=== PATIENT | male | born 1945 | race Caucasian/White ===

== ENCOUNTER 2021-04-09 11:32 | Inpatient (IN) | payer BC ==
[~2021-04-09] VITALS: Ht 182.9 cm; Wt 148.4 kg
--- NOTE | ~2021-04-09 | O ---
[facility] [place] [address] OPERATIVE REPORT Name: ANJEL JONES Room #: 457-P ADM IN M.R.#: [id number] Admission: 04/09/21 Attend Phys: Romeo Pham MD Discharge: Date of : 43 Report #: [id number] THIS REPORT FOR: cc: FAM - Family physician unknown FAM - Family physician unknown Brady Churchill MD ~ DOC #: [id number] Brady Churchill MD DATE OF SERVICE: 04/13/2021 PREOPERATIVE DIAGNOSES: Gallstone pancreatitis, acute cholecystitis. POSTOPERATIVE DIAGNOSES: Gallstone pancreatitis, acute cholecystitis. OPERATION: Laparoscopic cholecystostomy. SURGEON: Brady Churchill MD. ANESTHESIA: General. ESTIMATED BLOOD LOSS: Minimal. SPECIMENS: None. DESCRIPTION OF PROCEDURE: After informed consent was obtained, the patient was brought to the operating room and placed supine. SCDs were placed and working. Preoperative antibiotics were administered. General anesthesia was induced. The abdomen was prepped and draped in the usual sterile fashion. A 5 mm incision was made in the left upper quadrant. Pneumoperitoneum was established. A supraumbilical 5-mm trocar was placed as well as 2 right upper quadrant 5 mm trocars were placed. I began dissection in the right upper quadrant. There was a significant amount of scarring from his previous operation, which appeared to have involved the right upper quadrant of the abdomen. I was able to identify the gallbladder. However, there was so much inflammation due to the cholecystitis and pancreatitis then I could not safely dissect in the triangle of [place]. At this point, I then made a cholecystomy. A 15-Equatorial [place]inean drain was placed through one of the right upper quadrant 5 mm trocars. A drain was placed into the gallbladder under laparoscopic vision. The ports were then removed. Skin was closed with 4-0 Monocryl. The drain was attached to bulb suction. Sterile dressings were applied. COMPLICATIONS: None. DISPOSITION: The patient was taken to recovery in satisfactory condition. [address] [address] OPERATIVE REPORT Name: KARENANJEL Room #: 457-P [facility] IN M.R.#: [id number] Admission: 04/09/21 Attend Phys: Romeo Pham MD Discharge: Date of : 43 Report #: [id number] MD CHELY Thomas/CUBA By: 1509 1617 Brady Churchill MD /nt
[2021-04-09 12:42] VITALS: BP 128/61
[2021-04-09] MEDS ORDERED: CARVEDILOL6.25 M1 PO (13:40)
[2021-04-09] MEDS ORDERED: LASIX 40 MG TAB40 MG PO (13:41)
[2021-04-09] MEDS ORDERED: SPIRONOLACTONE50 MG PO (13:48)
[2021-04-09] MEDS ORDERED: ALLOPURINOL 10100 M2 PO (13:50)
--- NOTE | 2021-04-09 14:12 | NUR ---
ASSUMED CARE OF PT AT 1230 THIS AFTERNOON. PT IS DIRECT ADMIT FROM [facility]. PT IS ADMITTED FOR POSSIBLE CYSTOCYSTECTOMY AFTER TESTING. PT IS A/OX4, NO PAIN COMPLAINTS. SKIN INTACT WITH LARGE MIDLINE SCAR DO TO COLONESTOMY AND OPEN HEART SURGERY.LIPS ARE CYANOTIC LOOKING AND PT STATED THAT IS NORMAL FOR HIM. PT O2 SAT IS 96% RA.IV IN LEFT HAND SL. ASSESSMENTS OTHERWISE UNREMARKABLE. CALL LIGHT AND OTHERNEEDS ARE WITHIN REACH. PT PREFERS TO SLEEP IN THE RECLINER DUE TO PREVIOUS NECK SURGERY.RX HAS BEEN SUBMITTED AND WAITING FOR DR. HORTON TO RECONCILE AND PLACE ORDERS.
--- NOTE | 2021-04-09 15:53 | NUR ---
PT ADMITTED RELATED TO POSSIBLE BILIARY BLOCK, CHOLECYSITIS. CM REVIEWED CHART AND SPOKE WITH CARE TEAM. CM MET WITH PT AT BEDSIDE THIS DAY. PT APPEARED TO BE A&O X4. CM ROLE INTRODUCED. PT INDICATED HE RESIDES IN A HOUSE WITH HIS AND FATHER IN [facility]. HE INDICATED THAT HE IS HERE VISITING HIS DTR KVNG VILLEDA AT HER HOUSE IN [facility]. HE INDICATED THAT THERE ARE 3 STEPS TO ENTER HER HOUSE THROUGH THE BACK AND 7-8 THROUGH THE FRONT. PT INDICATED HE USES A CANE IN THE COMMUNITY. PT HAS CPAP FOR HOME USE. [place] PCP IS [place] IS DR. DAVIE RODRIGUEZ. PT INDICATED THAT HE ANTICIPATES RETURNING TO HIS DTR'S HOUSE ONCE MEDICALLY STABLE. CM TO FOLLOW INDICATED WITH DC PLANNING.
--- NOTE | 2021-04-09 16:08 | EKG ---
[address] [address] ELECTROCARDIOGRAM REPORT Name: ANJEL JONES Room #: 457-P ADM IN M.R.#: [id number] Admission: 04/09/21 Attend Phys: Romeo Pham MD Discharge: Date of : 43 Report #: [id number] [facility] Test Date: 2021-04-09 Test Time: 15:34:44 Pat Name: ANJEL JONES Department: Room: [facility] Gender: M Sales Representative Groceries: FSCHWALBE : 1945 Requested By: Alexandre Covarrubias Order Number: [id number] : Amrit Luciano Measurements Intervals [place] Rate: 89 P: NV: QRS: 18 QRSD: 120 T: 171 QT: 332 QTc: 404 Interpretive Statements Atrial fibrillation No previous ECG available for comparison Electronically Signed On 04-09-2021 16:08:16 CDT by Amrit Luciano [email or web address] <ELECTRONICALLY SIGNED> By: Amrit Luciano MD, [facility] 04/09/21 1608 1534 1534 Amrit Luciano MD, FACC /EPI
[2021-04-09 16:31] LABS: ABSOLUTE NEUTROPHILS 6.8 thou/uL (1.4-8.2); BASOPHILS 0.1 % (0.0-2.0); EOSINOPHILS 0.3 % (0.0-3.0); HEMATOCRIT 46.9 % (42.0-52.0); HEMOGLOBIN 15.4 gm/dL (14.0-18.0); LYMPHOCYTES 2.2 % (24.0-44.0); MCH 32.2 pg (26.0-34.0); MCHC 32.8 g/dL (28.0-37.0); MONOCYTES 5.8 % (1.0-8.0); PLATELET COUNT 132 thou/uL (150-400); POLYS 91.6 % (36.0-66.0); RBC 4.78 mil/uL (4.50-6.00); RDW 15.5 % (10.5-14.5); WBC 7.4 thou/uL (4.0-11.0)
[2021-04-09 16:44] LABS: APTT 27.2 Seconds (24.5-32.8); INR 1.21; PROTIME 13.1 Seconds (10.5-12.1)
[2021-04-09 16:51] LABS: ALBUMIN 3.6 g/dL (3.4-5.0); ANION GAP 7 mmol/L (7-16); BUN 25 mg/dL (7-18); CALCIUM 9.1 mg/dL (8.5-10.1); CHLORIDE 99 mmol/L (98-107); CO2 29 mmol/L (21-32); CREATININE 1.3 mg/dL (0.7-1.3); MAGNESIUM 1.8 mg/dL (1.8-2.4); POTASSIUM 4.3 mmol/L (3.5-5.1); SGOT 192 U/L (15-37); SGPT 282 U/L (30-65); SODIUM 135 mmol/L (136-145); TOTAL BILIRUBIN 7.5 mg/dL (0.2-1.0); TOTAL PROTEIN 7.1 g/dL (6.4-8.2); TROPONIN-I <0.06 ng/mL (<0.06)
[2021-04-09 16:52] LABS: GLUCOSE 126 mg/dL (74-106)
[2021-04-09 17:43] LABS: BE(vivo) -2.7 mmol/L (-2 to +3); HCO3 20.2 mmol/L (22.0-26.0); PCO2 30.6 mmHg (35.0-45.0); pH 7.437 (7.360-7.450); sO2 91.4 % (92.0-98.0)
[2021-04-09 20:12] VITALS: BP 118/77
[2021-04-10 07:29] LABS: CALCIUM 8.9 mg/dL (8.5-10.1); CREATININE 1.5 mg/dL (0.7-1.3)
[2021-04-10 08:04] VITALS: BP 107/61
--- NOTE | 2021-04-10 08:08 | NUR ---
Assumed pt care at 1900. A/OX4, VSS. Denies pain on assessment. C/o weakness, SBA to BR. Sleeps on the chair,encouraged to keeep extremities elevated;has 3+pitting edema on BLE; IV lasix given at HS and pt voiding adequately. Resting quietly CPAP/Continuous POX on. Call light within reach.
--- NOTE | 2021-04-10 13:30 | NUR ---
PT HAS GENERAL SURGERY CONSULT, CARDIOLOGY, AND GI. THERE HAD BEEN TALK FOR POSSIBLE LAP LEOBARDO. CM FOLLOWING REGARDING DC PLANNING.
[2021-04-10 17:13] VITALS: BP 106/70
--- NOTE | 2021-04-10 20:11 | NUR ---
Patient alert and orinted x4, on room air, up with stand by assist, vital signs stable, and afbrile. Call light with in reach. will continue to monitor.
[2021-04-10 21:43] VITALS: BP 106/69
[2021-04-11 05:57] LABS: HEMATOCRIT 44.6 % (42.0-52.0); HEMOGLOBIN 14.9 gm/dL (14.0-18.0); MCH 32.4 pg (26.0-34.0); MCHC 33.5 g/dL (28.0-37.0); MCV 96.7 fL (80.0-100.0); RBC 4.61 mil/uL (4.50-6.00); RDW 15.4 % (10.5-14.5); WBC 6.6 thou/uL (4.0-11.0)
[2021-04-11 06:15] LABS: ALBUMIN 3.2 g/dL (3.4-5.0); TOTAL BILIRUBIN 3.2 mg/dL (0.2-1.0); TOTAL PROTEIN 6.8 g/dL (6.4-8.2)
[2021-04-11 06:20] LABS: CALCIUM 8.7 mg/dL (8.5-10.1); CREATININE 1.7 mg/dL (0.7-1.3); POTASSIUM 3.2 mmol/L (3.5-5.1)
--- NOTE | 2021-04-11 07:23 | NUR ---
Assumed pt care at 1900. A/OX4, VSS.Denies pain on assessment, no N/V. Up with SBA to BR. Voiding adequately per urinal. Edema persists to BLE 3+ encouraged to keep extremities elevated, sleeps on the chair. Resting quietly w/o distress noted CPAP on.
[2021-04-11 07:53] VITALS: BP 104/64
--- NOTE | 2021-04-11 11:46 | NUR ---
ASSUMED PT CARE THIS AM. PT A&OX4, VITAL SIGNS STABLE. PATIENT HAS BLE EDEMA NOTED. PATIENT REMAINS CONTINENT, AND IS STANDBY ASSIST TO THE BATHROOM. APTIENT ABLE TO MAKE NEEDS KNOWN. PATIENT REPORTS NO PAIN, NUMBNESS, OR TNIGLING. IV PATENT, SALINE LOCKED. PATIENT ON ROOM AIR. REMAINS ON TELEMETRY. REMAINS NPO OTHER THAN SIPS WITH MEDICATIONS ORDERED. CALL LIGHT WITHIN REACH.
--- NOTE | 2021-04-11 15:12 | NUR ---
PT WAS TO HAVE ERCP AND POSSIBLE LAP LEOBARDO THIS DAY BUT THERE WAS ISSUE WITH EQUIPTMENT SO THEY WILL DONE TOMMOROW. PT EXPRESSED CONCERN THAT HE MAY BE OON HERE... CM SPOKE WITH PT AND HE INDICATED HE HADN'T BEEN INFOMRED OF THAT BUT JUST HAD A FEELING. UR NURSE SEEING IF SHE CAN REACH OUT TO INSURANCE FOR DETERMINATION. CM FOLLOWING REGARDING DC PLANNING.
[2021-04-11 16:05] VITALS: BP 95/60
[2021-04-11 17:50] VITALS: BP 106/59
[2021-04-11 19:25] VITALS: BP 103/59
--- NOTE | 2021-04-12 04:21 | NUR ---
ASSESSMENT DOCUMENTED.PT BEEN RESTING IN NO ACUTE DISTRESS.A/OX4.VSS.PT SLEEPING IN THE CHAIR,CPAP ON.NPO FOR ERCP TODAY.NO CONCERNS VOICED.
[2021-04-12 05:18] LABS: CALCIUM 8.5 mg/dL (8.5-10.1); CREATININE 1.7 mg/dL (0.7-1.3); POTASSIUM 3.5 mmol/L (3.5-5.1)
[2021-04-12 05:29] LABS: ALBUMIN 3.2 g/dL (3.4-5.0); DIRECT BILIRUBIN 1.9 mg/dL (<0.1-0.2); TOTAL BILIRUBIN 2.6 mg/dL (0.2-1.0); TOTAL PROTEIN 6.2 g/dL (6.4-8.2)
[2021-04-12 07:30] VITALS: BP 107/56
--- NOTE | 2021-04-12 13:45 | NUR ---
PT TO HAVE ERCP THIS DAY AND DEPENDING ON RESULTS LAP LEOBARDO. CM FOLLOWING REGARDING DC PLANNING.
[2021-04-12 16:43] VITALS: BP 104/69
[2021-04-12 20:03] VITALS: BP 102/64
--- NOTE | 2021-04-12 20:21 | NUR ---
Received awake on bed. On nothing per orem- pt informed and aware; mouth swabs offered. On telemetry; no complains and signs of chest pain, crushing sensation and heaviness. Assisted in ADLs. On room air during daytime and CPAP at HS. Continent of bowel and bladder, using urinal at times. Pt preferred to stay in the recliner most of the day; able to reposition self; elevated legs. With SL at L FA- on IV antibiotics. Falls bundle in place. Scheduled for ERCP today, fetched by pre-op staff approx 11am- back to room at 1500, transferred safely. Complained of nausea, PRN Zofran given as prescribed; able to tolerate clear liquids. Pt scheduled to have lap janna tomorrow- pt informed and aware; night RN informed pt to be NPO at midnight. Complained of pain, refusing to have PRN IV morphine- Dr Ellis informed re: this, ordered for PO Tylenol obtained- given as prescribed. To continue monitoring patient.
[2021-04-13 08:00] VITALS: BP 114/66
[2021-04-13 10:04] LABS: HEMATOCRIT 45.1 % (42.0-52.0); HEMOGLOBIN 14.9 gm/dL (14.0-18.0); MCH 32.1 pg (26.0-34.0); MCV 97.1 fL (80.0-100.0); RBC 4.65 mil/uL (4.50-6.00); RDW 14.8 % (10.5-14.5); WBC 6.6 thou/uL (4.0-11.0)
[2021-04-13 10:34] LABS: CALCIUM 8.8 mg/dL (8.5-10.1); CREATININE 1.7 mg/dL (0.7-1.3); MAGNESIUM 2.1 mg/dL (1.8-2.4); POTASSIUM 4.7 mmol/L (3.5-5.1)
--- NOTE | 2021-04-13 12:22 | NUR ---
PT HAD ERCP YESTERDAY. PT HAVING LAP LEOBARDO THIS DAY. IT IS ANTICPATED THAT PT WILL DISCHARGE HOME TO HIS DTR'S HOUSE IN [place] ONCE MEDICALLY STABLE. PT MAY BE MEDICALLY STABLE TO DISCHARGE OVER THE WEEKEND. NO NEEDS ANTICPATED AT THIS TIME.
[2021-04-13 18:08] VITALS: BP 113/74
--- NOTE | 2021-04-13 18:33 | NUR ---
ASSUMED CARE OF PATIENT AT SHIFT CHANGE. ASSESSMENT CHARTED. MEDICATIONS HELD EXCEPT BETA HERNAN PER PRE-OP REQUEST. VSS. PATIENT A&OX4 AND MAKES NEEDS KNOWN. PATIENT WORKED WITH OT THIS DAY AND DID WELL. PATIENT LEFT FOR LAP LEOBARDO AT 1300 AND RETURNED AT APPROX 1700. PATIENT ENCOUNTERED COMPLICATIONS DURING SX AND WAS NOT ABLE TO HAVE GALLBLADDER REMOVED DUE TO TOO MUCH INFLAMMATION; SEE POST OP NOTES. PATIENT RECIEVED FROM PACU WITH EYES CLOSED BUT ALERT AND ORIENTED. PATIENT VOICES SORENESS ON GEN. ABD ESPECIALLY RUQ. MARGARET DRAIN NOW IN PLACE ON RUQ DRAINING SANGUINOUS FLUID. PATIENT STATES HE FEELS TO SORE TO GET UP AND USE THE URINAL AND CONSENTED TO AN EXTERNAL MAKE CATHETER; IN PLACE. REG DIET AVALABLE HOWEVER PATIENT IS HOLDING OFF FOR NOW. FALL PRECAUTIONS IN PLACE. WILL ENDORSE TO HOLLIE NIX
[2021-04-13 20:05] VITALS: BP 118/79
[2021-04-14 04:32] VITALS: BP 131/87
--- NOTE | 2021-04-14 04:35 | NUR ---
PATIENT AOX4 MAKES NEEDS KNOWN. PATIENT ON 2 L OF OXYGEN AND CPAP AT NIGHT, NO SOA OR DISTRESS NOTED THIS SHIFT.PATIENT HAS 3 LAB SITE C/D/I.MARGARET DRAINAGE ON RLQ DRESING IS C/D/I,WITH LARGE AMOUNT OF OUTPUT. FALL PRECAUTION IN PLACE.PATIENT IN BED ASLEEP AT THIS TIME BREATHING REGULAR AND UNLABOURED.
[2021-04-14 05:36] LABS: HEMATOCRIT 42.5 % (42.0-52.0); HEMOGLOBIN 14.2 gm/dL (14.0-18.0); MCH 32.6 pg (26.0-34.0); MCHC 33.3 g/dL (28.0-37.0); MCV 97.7 fL (80.0-100.0); RBC 4.35 mil/uL (4.50-6.00); WBC 9.7 thou/uL (4.0-11.0)
[2021-04-14 05:41] LABS: CALCIUM 8.4 mg/dL (8.5-10.1); CREATININE 1.6 mg/dL (0.7-1.3); MAGNESIUM 2.2 mg/dL (1.8-2.4); POTASSIUM 4.6 mmol/L (3.5-5.1)
[2021-04-14 07:26] VITALS: BP 107/63
--- NOTE | 2021-04-14 14:45 | NUR ---
Assumed pt care this am vs stable. Pt prefers to stay on the recliner. pain is managed with medications. MARGARET drain in place draining dark brown fluid. +2 pitting edema on BLE, hypoactive bowel sounds. POC followed with no signs or distress noted.
[2021-04-14 15:50] VITALS: BP 102/65
[2021-04-14 19:53] VITALS: BP 95/62
--- NOTE | 2021-04-15 05:01 | NUR ---
Assumed pt care at 1900. A/OX4, VSS. Up with SBA to bathroom. No BM yet,passing flatus. C/o pain to RUQ on MARGARET site,medicated per EMAR with no relief reported. Hanna FRANCOIS notified;N.o for additional Dilaudid given. Pt has 3 lap sites on Left side abd intact with steri-strips. Margaret drain with moderate drainage,serosanguineous drainage. Resting on recliner feet elevated, CPAP in place no distress noted. Will continue to monitor pt.
[2021-04-15 08:28] VITALS: BP 114/82
[2021-04-15 17:43] VITALS: BP 116/74
--- NOTE | 2021-04-15 19:34 | NUR ---
Assumed pt care this am, vs stable . Preferred to be in the recliner for the entire shift and stated he sleeps better there. Pain is managed with medications partial relief is noted. Significant output is noted for the MARGARET neelima on the RUQ draining dark brown fluid. Uses the urinal with dark yellow urine. Daily wt taken 326 lbs, hypo active bowel sounds awaiting bm medication given as per emar. Pt stated he is passing flatus though not observed. Pt kept on stating he was going home today, wanting to be assisted in dressing up. Explained in numerous occasions this was not the case and he is not being dc.l Pt is not able to get up from the recliner easily and pain free, pt lips are cyanotic. BLE elevated, +1 edema noted from the ankles to the feet. and daughter have called asking if pt will be dc since this is what the pt stated. Informed family of the current status of the pt and dc was ontr being givenas of today. Both daughter and stated he cannot go home given the current state and the daughter with who he will be going home to here in is not able and willing to take him in given her own medical issues. Pt got upset that no one has come to visit him and he was "chewed out by his family". Endorsded to the night nurse. POC followedm, endorsed to the night nurse.
[2021-04-15 19:51] VITALS: BP 107/81
[2021-04-16 05:30] LABS: HEMATOCRIT 42.8 % (42.0-52.0); HEMOGLOBIN 13.9 gm/dL (14.0-18.0); MCH 31.6 pg (26.0-34.0); MCHC 32.5 g/dL (28.0-37.0); MCV 97.1 fL (80.0-100.0); RBC 4.41 mil/uL (4.50-6.00); RDW 15.3 % (10.5-14.5); WBC 11.8 thou/uL (4.0-11.0)
[2021-04-16 05:37] LABS: CALCIUM 8.4 mg/dL (8.5-10.1); CREATININE 1.6 mg/dL (0.7-1.3); MAGNESIUM 2.1 mg/dL (1.8-2.4); POTASSIUM 4.5 mmol/L (3.5-5.1)
--- NOTE | 2021-04-16 07:26 | NUR ---
Assumed pt care at 1900. A/OX4, VSS. Up with min assist to use urinal/BSC, passing flatus no BM yet. C/o abd pain around MARGARET site medicated per with some relief reported. Margaret drain with serosanguineous drainage 55cc. Pt was frustrated at the beginning of the shift regarding dc;1:1 time spent with pt and pt verbalized feeling better and will follow POC. AFIB on telemetry. Resting on the recliner w/o any distress noted.
[2021-04-16 07:27] VITALS: BP 96/61
--- NOTE | 2021-04-16 10:18 | P ---
[facility] [place] [address] PROCEDURE REPORT Name: ANJEL JONES Room #: 457-P ADM IN M.R.#: [id number] Admission: 04/09/21 Attend Phys: Romeo Pham MD Discharge: Date of : 43 Report #: [id number] THIS REPORT FOR: cc: FAM - Family physician unknown FAM - Family physician unknown Talha Desouza MD ~ DOC #: [id number] cc: Brady Churchill MD, Oneil Santana MD [facility], MD Talha Tsang MD DATE OF SERVICE: 04/12/2021 PROCEDURE PERFORMED: ERCP with sphincterotomy and balloon sweeps. HISTORY OF PRESENT ILLNESS: The patient is a 75-year-old male who was transferred from [facility] for possible gallstone pancreatitis. Lives in [place], [place], was visiting his daughter, began having abdominal pain. At [facility], he was noted to have a lipase of 3478. CT scan of the abdomen and pelvis showed dilated gallbladder with dependent stones. Ultrasound also showing distended gallbladder with cholelithiasis suggestive of cholecystitis with diffuse gallbladder mural thickening, positive Robles sign. His bilirubin on admission was 7.5, AST 192, ALT 282, alkaline phosphatase 135. He was unable to undergo an MRCP as he is claustrophobic. His white count has remained normal and stable. His white count yesterday was 6.6. His bilirubin has dropped, it is 2.6 today. AST 44, ALT 123, alkaline phosphatase 94. He is feeling better at this time. He has been on IV Zosyn since admission. Plan is for ERCP. DESCRIPTION OF PROCEDURE: The risks and benefits of the procedure were explained to the patient, those risks including but not limited to bleeding, perforation and the risk of sedation as well as the potential risk for post-ERCP pancreatitis. He understood these risks and gave informed consent. The procedure was performed in the OR under general anesthesia. Again, the patient is already on scheduled IV Zosyn. A 50 mg indomethacin rectal suppository was given prior to the procedure as well. Next, using a standard Olympus side-viewing ERCP scope, the scope was placed in the patient's mouth and advanced under direct vision through the esophagus, stomach, and into the second portion of the duodenum. The major papilla was identified, which was normal. Just above the papilla was a medium size diverticulum. Next, using a Hansel-Cook 0.025 dome tip sphincterotome catheter, the common bile duct was cannulated without difficulty and a cholangiogram was obtained. A low off take of the cystic duct was noted. The cystic duct did fill as well as part of the gallbladder. A guidewire was advanced into the intrahepatic ducts. The cholangiogram showed mild dilation of the distal common bile duct. No obvious filling defects were seen. At this point, a sphincterotomy was performed. Small amount of sludge and debris was removed just with the sphincterotome [address] [address] PROCEDURE REPORT Name: ANJEL JONES Room #: 457-P [facility] IN M.R.#: [id number] Admission: 04/09/21 Attend Phys: Romeo Pham MD Discharge: Date of : 43 Report #: [id number] during sphincterotomy. At this point, the sphincterotome was removed and a balloon catheter was advanced over the guidewire. Several balloon sweeps were then performed, again a small amount of sludge was noted, but no stone was seen. At this point, a balloon occlusion cholangiogram was then performed. No filling defects were noted. At this point, the wire and catheter were removed. The scope was then withdrawn and the procedure terminated. The patient tolerated the procedure well. IMPRESSION: 1. Mildly dilated common bile duct. No obvious filling defect, status post sphincterotomy with balloon sweeps with removal of some sludge, suspect the patient may have had a common bile duct stone which is already passed as his bilirubin is improving. 2. Small duodenum and medium size diverticulum. 3. Normal intrahepatics. RECOMMENDATIONS: 1. Observe the patient post-procedure. 2. Recommend laparoscopic cholecystectomy in the near future. 3. Continue monitoring liver function test and continue antibiotics at this time. Thank you for allowing me to participate in his care. Talha Desouza MD CCM/VALERIY <ELECTRONICALLY SIGNED> By: Talha Desouza MD 04/16/21 1018 1246 [id number] Talha Desouza MD /nt
--- NOTE | 2021-04-16 10:19 | NUR ---
Received awake on bed. Due medications given as prescribed, able to swallow meds w/o difficulty. On room air during daytime; using CPAP at night. On telemetry, no complains of chest pain, crushing sensation and heaviness. Assisted in ADLs. Continent of bowel and bladder, using urinal and able to use bedside commode at times. Pt complaining of not having a bowel movement for 5-6 days- physician aware; on stool softeners already. With MARGARET drain at RUQ- dressing C/D/I- output measured and recorded accordingly. With 3 lap sites- C/D/I- no signs of bleeding and drainage noted. On regular diet- tolerating well; no nausea, no vomiting and no abdominal pain noted. With SL t L FA; on IV antibiotics. No complains of pain made during assessment. To continue monitoring patient.
[2021-04-16 16:16] VITALS: BP 107/63
[2021-04-16 20:19] VITALS: BP 99/53
--- NOTE | 2021-04-17 02:59 | NUR ---
PT BEEN RESTING IN NAD.A/OX4.VSS.PT HAS A LARGE SOFT BM THIS SHIFT.STATED HE FEELS SO MUCH BETTER.PT ANTICIPATING DISCHARGE TO HOME TODAY.J-P DRAIN DD SEROSANGUOIUS DRAINAGE.NO CONCERNS VOICED AT THIS TIME.ASSESSMENT COMPLETED DOCUMENTED.
[2021-04-17 03:44] VITALS: BP 92/60
[2021-04-17 04:34] LABS: HEMATOCRIT 41.4 % (42.0-52.0); HEMOGLOBIN 13.7 gm/dL (14.0-18.0); MCHC 33.1 g/dL (28.0-37.0); MCV 96.6 fL (80.0-100.0); RBC 4.28 mil/uL (4.50-6.00); WBC 11.8 thou/uL (4.0-11.0)
[2021-04-17 04:58] LABS: CALCIUM 8.6 mg/dL (8.5-10.1); CREATININE 1.5 mg/dL (0.7-1.3)
[2021-04-17] MEDS ORDERED: DEMADEX20 MG PO (11:01)
--- NOTE | 2021-04-17 11:06 | NUR ---
ASSUMED PT CARE THIS AM. PT VSS, A&OX4. PATIENT REPORTING NO PAIN WHEN ASSESSED. PATIENT REMAINS CONTINENT, AMBULATORY TO E BATHROOM WITH ASSIST AND USES A URINAL. PATIENT HAS A MARGARET DRAIN TO THE RIGHT SIDE OF ABDOMEN. PATIENT IS REPORTING NO NUMBNESS OR TINGLING. EDEMA NOTED IN BILATERAL ANKLES AND FEET. IV IS PATENT, SALINE LOCKED. PATIENT IS ABLE TO MAKE ALL NEEDS KNOWN. PATIENT REMAINS ON TELEMETRY. FALL PRECAUTIONS ARE IN PLACE, CALL LIGHT WITHIN REACH.
[2021-04-17] MEDS ORDERED: AUGMENTIN 875-1 EACH PO (11:12)
[2021-04-17 11:25] VITALS: BP 110/72
--- NOTE | 2021-04-17 12:20 | NUR ---
CARE TEAM INDICATED THAT PT IS MEDICALLY STABLE TO DISCHARGE THIS DAY. PT IS TO DISCHARGE BACK TO HIS DTRS HOME IN [facility] TO SELF CARE. NO OTHER CM INTERVENTION INDICATED. CASE CLOSED.
== END 2021-04-17 13:00 | disposition home or self-care (01) | DRG 417 ==
LOC: 4W 11:32
PROVIDERS: Internal Medicine; Nurse Practitioner; ADMIT Internal Medicine; ATTEND Hospitalist
PROC: 5A09457 Assistance with Respiratory Ventilation, 24-96 Consecutive Hours, Continuous Positive Airway Pressure (ICD-10-PCS; principal; 2021-04-09)
PROC: 5A09357 Assistance with Respiratory Ventilation, Less than 24 Consecutive Hours, Continuous Positive Airway Pressure (ICD-10-PCS; 2021-04-12)
PROC: 0F798ZZ Dilation of Common Bile Duct, Via Natural or Artificial Opening Endoscopic (ICD-10-PCS; 2021-04-12)
PROC: 0FT44ZZ Resection of Gallbladder, Percutaneous Endoscopic Approach (ICD-10-PCS; 2021-04-13)
PROC: 5A09357 Assistance with Respiratory Ventilation, Less than 24 Consecutive Hours, Continuous Positive Airway Pressure (ICD-10-PCS; 2021-04-13)
PROC: 5A09357 Assistance with Respiratory Ventilation, Less than 24 Consecutive Hours, Continuous Positive Airway Pressure (ICD-10-PCS; 2021-04-14)
PROC: 5A09357 Assistance with Respiratory Ventilation, Less than 24 Consecutive Hours, Continuous Positive Airway Pressure (ICD-10-PCS; 2021-04-15)
DX: K80.62 Calculus of gallbladder and bile duct with acute cholecystitis without obstruction (principal); K85.10 Biliary acute pancreatitis without necrosis or infection; I50.23 Acute on chronic systolic (congestive) heart failure; J96.01 Acute respiratory failure with hypoxia; Z68.41 Body mass index [BMI] 40.0-44.9, adult; I42.8 Other cardiomyopathies; I48.21 Permanent atrial fibrillation; D68.59 Other primary thrombophilia; N17.9 Acute kidney failure, unspecified; I13.0 Hypertensive heart and chronic kidney disease with heart failure and stage 1 through stage 4 chronic kidney disease, or unspecified chronic kidney disease; K56.7 Ileus, unspecified; K57.30 Diverticulosis of large intestine without perforation or abscess without bleeding; I25.10 Atherosclerotic heart disease of native coronary artery without angina pectoris; G47.33 Obstructive sleep apnea (adult) (pediatric); E66.01 Morbid (severe) obesity due to excess calories; E78.5 Hyperlipidemia, unspecified; N28.89 Other specified disorders of kidney and ureter; K46.9 Unspecified abdominal hernia without obstruction or gangrene; I35.0 Nonrheumatic aortic (valve) stenosis; R74.01 Elevation of levels of liver transaminase levels; N18.9 Chronic kidney disease, unspecified; R53.81 Other malaise; G47.00 Insomnia, unspecified; Z20.822 Contact with and (suspected) exposure to COVID-19; Z91.041 Radiographic dye allergy status; Z95.2 Presence of prosthetic heart valve; Z95.1 Presence of aortocoronary bypass graft; Z95.810 Presence of automatic (implantable) cardiac defibrillator; Z82.49 Family history of ischemic heart disease and other diseases of the circulatory system; Z87.891 Personal history of nicotine dependence
CPT/HCPCS: 10045; 50010; 50101; 50331; 50411; 50555; 51489; 52265; 52266; 53307; 53312; 53314; 55245; 56462; 56525; 56526; 58574; 58586; 62110; 62900; 70005